=== PATIENT | female | born 1985 | race African-American/Black ===

== ENCOUNTER 2016-12-11 10:37 | Emergency (ER) ==
--- NOTE | 2016-12-11 11:51 | PROVIDER DOCUMENTATION ---
HPI-General Adult - General Source: patient - History of Present Illness -Gen Adult Nature of Presenting Problems: patient is a 31 yo F that presents to the Er with two issues 1) rash x 7 months. hasn't been treated, uses alot of bath and body works lotions and sprays. no fever/chills 2) cough, congestion, sinus pressure, body aches since this am. child was dx with flu Location of Pain/Injury: reports: generalized Pain Radiation: reports: no radiation Quality of Pain: reports: none Severity: reports: mild Onset/Duration: reports: gradual, other (7 months) Timing: reports: still present, constant Context/Activities at Onset: reports: none Modifying Factors: improves with: nothing Associated Symptoms: reports: cough, EENT symptoms, muscle aches, rash, weakness . denies: back/neck pain, chest pain, diarrhea, fatigue, fever/chills, genitourinary problems, vomiting Similar Symptoms Previously?: No Recently seen or treated by another doctor?: No <Wilfrido Galindo - Last Filed: 12/11/16 11:48> <Arnoldo Evans - Last Filed: 12/11/16 12:25> - General Chief Complaint: Cold Symptoms Stated Complaint: SORE THROAT,COUGHING,CONGESTED Time Seen by Provider: 12/11/16 11:26 Allergies/Adverse Reactions: Patient Allergies Allergy/AdvReac Type Severity Reaction Status Date / Time No Known Allergies Allergy Verified 12/11/16 11:39 Home Medications: Home Medication List Medication Instructions Recorded Confirmed Last Taken Type Fluticasone 50 Mcg Nasal Blanket 1 spray HARPREET DAILY #1 bottle 12/11/16 Unknown Rx [Flonase] Montelukast Chew [Singulair] 5 mg PO DAILY #30 tablet 12/11/16 Unknown Rx Review of Systems - Adult - REVIEW OF SYSTEMS - ADULT Constitutional: denies: chills, fever Eyes: reports: no symptoms reported Ears, Nose, Mouth & Throat: reports: sinus problem. denies: ear pain, throat pain, throat swelling Cardiovascular: denies: chest pain, palpitations Respiratory: reports: cough. denies: shortness of breath, wheezing Gastrointestinal: denies: abdominal pain, diarrhea, nausea, vomiting Genitourinary: reports: no symptoms reported Musculoskeletal: reports: muscle aches, muscle weakness Integumentary: reports: itching, rash Neurological: reports: no symptoms reported Psychiatric: reports: no symptoms reported Endocrine: reports: no symptoms reported Hematologic/Lymphatic: reports: no symptoms reported Allergic/Immunologic: reports: no symptoms reported All Other Systems: Reviewed and Negative <Wilfrido Galindo - Last Filed: 12/11/16 11:48> Past History - Adult - PAST MEDICAL HISTORY-ADULT Review of Records: reports: Old Records Reviewed, Nursing Assessment Review, Medications Reviewed, Social history reviewed & non-contributory. Major Childhood Illnesses: reports: denies history Cardiovascular: reports: denies history Respiratory: reports: denies history Gastrointestinal: reports: denies history Obstetrical/Gynecological: reports: denies history Genitourinary: reports: denies history Musculoskeletal: reports: denies history Neurological: reports: headaches/migraines Endocrine/Immune: reports: anemia Other Conditions: reports: denies history - PRIOR SURGERIES/PROCEDURES Surgical/Procedure History: reports: - IMMUNIZATION STATUS Childhood Immunizations: See Nurse Assessment Flu Vaccine: See Nurse Assessment - FAMILY HISTORY Family History: reviewed, not pertinent <Wilfrido Galindo - Last Filed: 12/11/16 11:48> Physical Exam-General - PHYSICAL EXAM-ADULT Initial Vital Signs Reviewed: Yes - CONSTITUTIONAL General Appearance: alert, no apparent distress - EYES Eyes: PERRL/EOMI, pink conjunctivae - HEAD, EARS, NOSE, MOUTH & THROAT HENMT: normocephalic/atraumatic, moist mucous membranes, pharynx normal, other ( tenderness sinus of ethmoid) - NECK Neck: full range of motion, normal inspection. negative: lymphadenopathy - RESPIRATORY Respiratory: lungs clear, normal breath sounds, no respiratory distress, no accessory muscle use - CARDIOVASCULAR Cardiovascular: regular rate, rhythm, no edema, no JVD - GASTROINTESTINAL (ABDOMEN) Abdominal Exam: normal bowel sounds, non tender, soft - MUSCULOSKELETAL Back Exam: normal inspection, no vertebral tenderness Extremity: normal range of motion, normal inspection, no pedal edema, normal capillary refill - SKIN Integumentary: normal color, warm/dry - NEUROLOGIC Neurologic: grossly normal, no motor/sensory deficits - PSYCHIATRIC Psych/Mental Status: normal mood/affect, normal thought content, normal thought process, oriented x 3 <Wilfrido Galindo - Last Filed: 12/11/16 11:48> Progress - PLAN OF CARE/RESULTS Progress/Plan/Lab Results: Orders Category Date Time Status Flu Swab [INFLUENZA SCREEN A/B] Stat Lab 12/11/16 11:48 Completed Vital Signs Temp Pulse Resp BP Pulse Ox 12/11/16 11:18 98.3 F 84 18 118/74 100 No Known Allergies Allergy (Verified 12/11/16 11:39) No Home Medications 12/11/16 <Arnoldo Evans - Last Filed: 12/11/16 12:25> Departure <Wilfrido Galindo - Last Filed: 12/11/16 11:48> - Departure Time of Disposition Order: 12:24 Certified Medical Emergency: Urgent <Arnoldo Evans - Last Filed: 12/11/16 12:25> - Departure DIAGNOSIS: Sinus pain, Dry skin dermatitis Disposition: HOME 01 Condition: Good Additional Instructions: Take medication as prescribed. Switch to hydrating lotion. Follow up with your primary care provider. ED Follow Up Instructions: You have been treated by a care provider in the Emergency Department. These instructions are being provided to you so you can have an understanding of how to care for yourself upon discharge. Upon discharge from the Emergency Department, you are responsible for making arrangements for follow-up care by a physician of your choice. Take all prescribed medications as directed. Return to the Emergency Department immediately for any new or worsening symptoms. You may call the Physician Referral phone number at [phone] to obtain a list of Physicians who are taking new patients. Prescriptions: Fluticasone 50 Mcg Nasal Blanket [Flonase] 1 spray HARPREET DAILY #1 bottle Montelukast Chew [Singulair] 5 mg PO DAILY #30 tablet Instructions: Migraine Headache, [id number] Attestation - Scribe Verification/Attestation Scribe:: Wilfrido Galindo Acting as Scribe for:: Arnoldo Evans Scribe documention review:: This chart was documented by a scribe and accurately reflects the service the provider performed and the decisions made by the provider. - Physician/ JOZEF Attestation Patient care was provided by Advanced Practice Provider:: Yes Advanced Practice Provider:: Arnoldo Evans Advanced Practice Provider documentation review:: The Mid-level provider documentation, treatment plan and medical decision making was reviewed by the physician who agrees with all treatment and medical decision making by the MLP. <Wilfrido Galindo - Last Filed: 12/11/16 11:48> - Physician/ JOZEF Attestation Patient care was provided by Advanced Practice Provider:: Yes Advanced Practice Provider:: Arnoldo Evans Advanced Practice Provider documentation review:: The Mid-level provider documentation, treatment plan and medical decision making was reviewed by the physician who agrees with all treatment and medical decision making by the MLP. <Arnoldo Evans - Last Filed: 12/11/16 12:25> Physician Attestation - Physician Attestation I, the provider, attest to the following statement:: Arnoldo Evans Physician documentation Attestation:: This documentation recorded by the scribe accurately reflects the service I personally performed and the decisions made by me. <Wilfrido Galindo - Last Filed: 12/11/16 11:48>
[2016-12-11 12:33] VITALS: BP 121/67
== END 2016-12-11 12:35 | disposition home or self-care (01) ==
LOC: ED 10:37
DX: J34.89 Other specified disorders of nose and nasal sinuses (principal); L85.3 Xerosis cutis; R21 Rash and other nonspecific skin eruption; R05 Cough; R09.81 Nasal congestion; M79.1 Myalgia; J02.9 Acute pharyngitis, unspecified; M62.81 Muscle weakness (generalized); L29.9 Pruritus, unspecified
CPT/HCPCS: 87804